=== PATIENT | male | born 1955 | race African-American/Black ===

== ENCOUNTER 2019-04-17 10:29 | Day surgery (SDC) | payer MEDICARE, MEDICAID ==
[~2019-04-17 10:29] MED LIST: ACETAMINOPHEN 1,000 MG/100 ML BTL IVPB ONE; CEFAZOLIN 2 Gram 2 GM/50 ML BAG IVPB SCH
[2019-04-17] MEDS ORDERED: LIDOCAINE 2% MDV (20MG/ML) 20ML VIAL IV ONE (10:30)
[2019-04-17] MEDS ORDERED: PROPOFOL 10 MG/ML VIAL IV ONE (10:30)
[2019-04-17] MEDS ORDERED: SEVOFLURANE 250 ML INH ONE (10:30)
[2019-04-17] MEDS ORDERED: RINGERS SOLUTION,LACTATED 1,000 ML IV ONE (11:16)
[2019-04-17 11:48] LABS: ABSOLUTE NEUTROPHIL COUNT 2.57; BASO % 0.6 % (0-6); EOS % 5.4 % (0-6); GRAN % 49.2 % (47-80); LYMPH % 36.7 % (16-45); MEAN CELL VOLUME 84.8 fl (81-97); MEAN CORPUSCULAR HGB CONC 33.3 g/dl (32-36); MEAN PLATELET VOLUME 9.8 fl (7.4-10.4); MONO % 8.1 % (0-9); PLATELET COUNT 215 K/uL (130-400); RED CELL DISTRIBUTION WIDTH 13.8 % (11.5-14.5); WHITE BLOOD COUNT W/O DIFF 5.2 K/uL (4.2-12.2)
[2019-04-17 11:49] LABS: MEAN CORPUSCULAR HEMOGLOBIN 28.2 pg (27-33)
[2019-04-17] MEDS ORDERED: MORPHINE SULFATE 5 MG/ML PREFILLED SYRINGE IM ONE (13:26)
[2019-04-17] MEDS ORDERED: BUPIVACAINE 0.5% W/EPI MPF 30 ML VIAL SQ ONE (13:26)
[2019-04-17] MEDS ORDERED: METHYLPREDNISOLONE 40MG/VIAL IU ONE (13:26)
[2019-04-17] MEDS ORDERED: KETOROLAC 30 MG/ML VIAL IVP ONE (13:51)
[2019-04-17] MEDS ORDERED: HYDROCODONE/APAP 7.5/325MG TABLET PO ONE (14:07)
--- NOTE | 2019-04-18 08:51 | Operative Note ---
DATE OF SURGERY: 04/17/2019 PREOPERATIVE DIAGNOSIS: Internal derangement of the right knee. POSTOPERATIVE DIAGNOSES: 1. 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 2. Grade 3 chondromalacia of the medial femoral condyle. 3. Complex radial split tear involving the posterior horn of the medial meniscus. 4. Grade 3 chondromalacia of the lateral tibial plateau. 5. Fringe tear of the anterolateral horn of the lateral meniscus. OPERATION: 1. Right knee arthroscopy with chondroplasty of the medial, lateral, and patellofemoral compartments. 2. Right knee arthroscopy with partial medial and lateral meniscectomies. STAFF SURGEON: Brannon Chakraborty MD ANESTHESIA: General. PREPARATION: Chloraprep. INDIVIDUAL CONSIDERATIONS: None. PROCEDURE: The patient was taken to the operating room and placed supine on the operating room table. The patient had a successful induction with general anesthetic. The right lower extremity was prepped and draped in the usual fashion. The patient had a superolateral inflow cannula placed. A large clear effusion was drained. The knee was inflated with normal saline. An inferomedial and an inferolateral portal were made in a similar fashion. The arthroscope was introduced through the inferolateral portal up into the pouch. Patellofemoral compartment showed grade 3-4 changes throughout. This was smoothed off with a shaver. Debris was irrigated out of both gutters and pouch. Medially, he had unstable grade 3 change of the medial femoral condyle centrally at about 45 degrees of flexion just lateral to the midline. This was smoothed with a shaver. Obvious complex split tear involving the posterior horn of the medial meniscus. Basically, this was debrided out with basket forceps and a shaver. In the notch, the cruciates were normal laterally. There was some grade 3 change centrally on the tibial plateau which was smoothed with a shaver. A fringe tear of the anterolateral horn of the lateral meniscus which was smoothed off with a shaver. The knee was irrigated out with saline to remove loose floating debris. Portals were closed with irina, and 20 mL of 0.25% plain Marcaine along with 4 mg of morphine and 40 mg of Depo-Medrol were injected into the knee. A sterile bulky compressive dressing was applied. The patient tolerated procedure well. Needle and sponge counts were correct. Estimated blood loss was minimal. He was taken back to recovery in good condition. There were no complications. RAPHAEL
== END 2019-04-17 14:25 | disposition home or self-care (01) ==
LOC: SUR 10:29
PROVIDERS: ATTEND Orthopaedic Surgery
DX: S83.231A Complex tear of medial meniscus, current injury, right knee, initial encounter (principal); S83.241A Other tear of medial meniscus, current injury, right knee, initial encounter; M94.261 Chondromalacia, right knee
CPT/HCPCS: 29880; 01400; 85025; J1885; J0690; J2270; J1030; J7120